=== PATIENT | female | born 1940 | race Two or more races ===

== ENCOUNTER 2017-11-07 20:01 | Observation (INO) | payer OTHER ==
--- NOTE | 2017-11-07 20:31 | PDOC ---
History of Present Illness - History of Present Illness Initial Comments: 11/07/17 20:54 Patient is a 77 F, with PMHx of diabetes, who presents with her daughter for 2 days of hiccough, and decreased PO intake. Her daughter states that 2 weeks ago her mother was seen for a throat infection and was given antibiotics by her doctor for 5 days. Approximately 2 days ago her mom started hiccoughing and coughing. Patient also experienced nausea, vomited once yesterday morning and has been unable to eat for 2 days. She states that she has been able to drink liquids. She was seen at [facility] yesterday and had a workup done. Her x-ray showed that she was constipated. Her daughter gave her mag citrate for the constipation. Her last bowel movement was this morning but passed a very little amount. PCP: Alma Kerr. PAST MEDICAL HISTORY: diabetes PAST SURGICAL HISTORY: no significant history FAMILY HISTORY: no pertinent history SOCIAL HISTORY: lives at home with family MEDICATIONS: reviewed ALLERGIES: As per nursing notes ROS: General: No fevers or chills, no weakness HEENT: No change in vision. No sore throat,. No ear pain Cardiovascular: No chest pain or shortness of breath Respiratory:+cough, +hiccough, no wheezing. Gastrointestinal: +nausea, + vomiting, no diarrhea. +constipation, +decreased PO intake. No rectal bleeding Genitourinary: No dysuria, hematuria, or frequency Musculoskeletal: No joint or muscle pain or swelling Neurologic: No headache, vertigo, dizziness or loss of consciousness Psychiatric: no depression Skin: No rashes or easy bruising Endocrine: no increased thirst or abnormal weight change Allergic: no skin or latex allergy All other systems reviewed and normal Exam: General: Well-nourished well-developed individual, no acute distress HEENT: Throat: Normal, tonsils normal, no erythema or exudate Neck: Supple, no meningeal signs, no lymphadenopathy Eyes::Pupils equal reactive and round, extraocular motion intact Chest: Nontender to palpation Cardiac: S1-S2 normal, regular rate and rhythm, no murmurs rubs or gallops Respiratory: Lungs clear to auscultation bilateral Abdomen: Soft, nondistended, normal bowel sounds, mild tenderness to palpation of lower abdomen. Extremities: Warm, dry, no cyanosis, clubbing, or edema Skin: No rashes Neuro: Alert and oriented x3, nonfocal exam, grossly intact, normal gait Psych: Normal mood and affect Rectal: vault empty, able to palpate small amount of stool high in rectum. Stool is brown with no blood. <Cherie Shah - Last Filed: 11/07/17 21:48> - General History Source: Patient Exam Limitations: No Limitations <Rogelio López I - Last Filed: 11/08/17 00:10> - General Chief Complaint: Nausea Stated Complaint: HICCOUGH Time Seen by Provider: 11/07/17 20:06 Past History <Cherie Shah - Last Filed: 11/07/17 21:48> <Rogelio López I - Last Filed: 11/08/17 00:10> - Past Medical History Allergies/Adverse Reactions: Allergies Allergy/AdvReac Type Severity Reaction Status Date / Time No Known Allergies Allergy Verified 11/07/17 20:24 Home Medications: Ambulatory Orders Cholecalciferol (Vitamin D3) [Vitamin D3] 1,000 unit PO DAILY 11/07/17 Enalapril Maleate 2.5 mg PO DAILY 11/07/17 Metformin HCl [Glucophage] 500 mg PO BID 11/07/17 Simvastatin 10 mg PO DAILY 11/07/17 Sitagliptin Phosphate [Januvia] 25 mg PO DAILY 11/07/17 Review of Systems - Review of Systems Comments:: 11/07/17 21:33 see HPI <Cherie Shah - Last Filed: 11/07/17 21:48> *Physical Exam - Physical Exam Comments: 11/07/17 21:33 see HPI <Cherie Shah - Last Filed: 11/07/17 21:48> ED Treatment Course - LABORATORY CBC & Chemistry Diagram: 11/07/17 21:45 11/07/17 21:45 <Cherie Shah Last Filed: 11/07/17 21:48> - LABORATORY CBC & Chemistry Diagram: 11/07/17 21:45 11/07/17 21:45 <Rogelio López Last Filed: 11/08/17 00:10> *DC/Admit/Observation/Transfer - Attestations Scribe Attestion: 11/07/17 20:57 Documentation prepared by Cherie Shah, acting as medical claims assistant for Rogelio López MD. <Cherie Shah - Last Filed: 11/07/17 21:48> - Discharge Dispostion Admit: Yes <Rogelio López I - Last Filed: 11/08/17 00:10> Diagnosis at time of Disposition: Hyponatremia Constipation Qualifiers: Constipation type: unspecified constipation type Qualified Code(s): K59.00 - Constipation, unspecified - Discharge Dispostion Condition at time of disposition: Good - Referrals Referrals: Alma Kerr MD [Primary Care Provider] - - Patient Instructions - Post Discharge Activity
[2017-11-07 21:00] VITALS: BMI 32.5
[2017-11-07 22:04] LABS: HEMATOCRIT 42.3 % (32.4-45.2); HEMOGLOBIN 14.4 GM/dl (10.7-15.3); MCH 28.7 pg (25.7-33.7); MEAN CELL VOLUME 84.4 fl (80-96); MEAN PLT VOLUME 6.6 fl (7.5-11.1); PLATELET COUNT 392 K/MM3 (134-434); RBC 5.01 M/mm3 (3.60-5.2); RDW 12.3 % (11.6-15.6); WHITE BLOOD COUNT 12.5 K/mm3 (4.0-10.8)
[2017-11-07 22:10] LABS: ALK PHOS 72 U/L (32-92); BILIRUBIN,TOTAL 0.8 mg/dl (0.2-1.0); BLOOD UREA NITROGEN 11 mg/dl (7-18); CALCIUM 9.2 mg/dl (8.4-10.2); CHLORIDE 87 mmol/L (98-107); CO2 29 mmol/L (22-28); CREATININE 0.6 mg/dl (0.6-1.3); GLUCOSE,RANDOM 285 mg/dl (74-106); SGOT/AST 22 U/L (10-42); SGPT/ALT 15 U/L (10-40); TOT PROT 6.7 g/dl (6.4-8.3)
[2017-11-07 22:20] LABS: ANION GAP 6 (8-16)
[2017-11-07 22:24] LABS: SODIUM 122 mmol/L (136-145)
[2017-11-07 22:29] LABS: PH,URINE 5.5 (4.5-8); URINE APPEARANCE Clear; URINE BILIRUBIN 1+ (NEGATIVE); URINE BLOOD Negative (NEGATIVE); URINE GLUCOSE (UA) 2+ (NEGATIVE); URINE KETONE 1+ (NEGATIVE); URINE LEUK ESTERASE Negative (NEGATIVE); URINE NITRITE Negative (NEGATIVE); URINE PROTEIN Trace (NEGATIVE); URINE UROBILINOGEN 0.2 (0.2-1.0)
[2017-11-07 22:31] LABS: URINE COLOR YELLOW
[2017-11-07 22:41] LABS: PLATELET ESTIMATE ADEQUATE
[2017-11-07] MEDS ORDERED: SODIUM CHLORIDE 1,000 ML IV ONE (22:45)
[2017-11-07 22:50] LABS: LIPASE 145 U/L (73-393)
[2017-11-08] MEDS ORDERED: SODIUM CHLORIDE 1,000 ML IV SCH ×2 (00:30→17:36)
[2017-11-08] MEDS: INSULIN SLIDING SCALE (NOVOLOG) 1 VIAL SQ SCH ×2 (01:53→06:06)
[2017-11-08] MEDS ORDERED: INSULIN (NOVOLOG) ASPART 100 UNITS/ML 10ML VIAL ONE ×2 (01:57→06:09)
[2017-11-08] MEDS ORDERED: HEPARIN NA (PORCINE) 5,000 UNITS/ML 1ML VIAL ONE ×2 (05:29→14:02)
[2017-11-08] MEDS ORDERED: HEMOQUE TEST 1 EACH EACH ONE ×3 (05:52→16:39)
[2017-11-08] MEDS: HEPARIN NA (PORCINE) 5,000 UNITS/ML 1ML VIAL SQ SCH ×3 (06:00→21:49)
[2017-11-08 07:32] LABS: BASO % 0.2 % (0-2.0); EOS % 0.4 % (0-4.5); HEMATOCRIT 37.2 % (32.4-45.2); HEMOGLOBIN 13.1 GM/dl (10.7-15.3); LYMPH % 10.5 % (8-40); MCHC 35.3 g/dl (32.0-36.0); MEAN CELL VOLUME 85.1 fl (80-96); MEAN PLT VOLUME 6.6 fl (7.5-11.1); MONO % 7.5 % (3.8-10.2); NEUT % 81.4 % (42.8-82.8); PLATELET COUNT 344 K/MM3 (134-434); RBC 4.37 M/mm3 (3.60-5.2); RDW 12.3 % (11.6-15.6); WHITE BLOOD COUNT 10.4 K/mm3 (4.0-10.8)
[2017-11-08 07:51] LABS: ANION GAP 0 (8-16); BLOOD UREA NITROGEN 9 mg/dl (7-18); CALCIUM 8.7 mg/dl (8.4-10.2); CHLORIDE 94 mmol/L (98-107); CO2 29 mmol/L (22-28); GLUCOSE,RANDOM 183 mg/dl (74-106); PHOSPHOROUS 1.9 mg/dl (2.5-4.6); POTASSIUM 3.6 mmol/L (3.5-5.1)
[2017-11-08 08:01] LABS: CREATININE < 0.8 mg/dl (0.6-1.3)
[2017-11-08 08:03] LABS: SODIUM 123 mmol/L (136-145)
--- NOTE | 2017-11-08 08:51 | HP ---
Admitting History and Physical - Primary Care Physician PCP: Winston Villalobos - Admission History of Present Illness: Patient is a 77 F, with PMHx of diabetes, who presents with her daughter for 2 days of hiccough, and decreased PO intake. Her daughter states that 2 weeks ago her mother was seen for a throat infection and was given antibiotics by her doctor for 5 days. Approximately 2 days ago her mom started hiccoughing and coughing. Patient also experienced nausea, vomited once yesterday morning and has been unable to eat for 2 days. She states that she has been able to drink liquids. She was seen at [facility] yesterday and had a workup done. Her x-ray showed that she was constipated. Her daughter gave her mag citrate for the constipation. pt found to be hyponatremic- given fluids cxr - -ve ct abd- pending report pt seen today in er. chart reviewed awake/ no distress but weak History Source: Medical Record Limitations to Obtaining History: Clinical Condition - Past Medical History Cardiovascular: Yes: HTN Endocrine: Yes: Diabetes Mellitus - Smoking History Smoking history: Former smoker Have you smoked in the past 12 months: No If you are a former smoker, when did you quit?: 1975 - Alcohol/Substance Use Hx Alcohol Use: No Home Medications - Allergies Allergies/Adverse Reactions: Allergies Allergy/AdvReac Type Severity Reaction Status Date / Time No Known Allergies Allergy Verified 11/07/17 20:24 - Home Medications Home Medications: Ambulatory Orders Cholecalciferol (Vitamin D3) [Vitamin D3] 1,000 unit PO DAILY 11/07/17 Enalapril Maleate 2.5 mg PO DAILY 11/07/17 Metformin HCl [Glucophage] 500 mg PO BID 11/07/17 Simvastatin 10 mg PO DAILY 11/07/17 Sitagliptin Phosphate [Januvia] 25 mg PO DAILY 11/07/17 Review of Systems - Review of Systems Constitutional: reports: Loss of Appetite, Weakness Eyes: reports: No Symptoms Neck: reports: No Symptoms Cardiovascular: reports: No Symptoms Respiratory: reports: No Symptoms Gastrointestinal: reports: Constipation Genitourinary: reports: No Symptoms Neurological: reports: No Symptoms Psychiatric: reports: No Symptoms Physical Examination Vital Signs: Vital Signs Temperature 97.8 F 11/08/17 04:00 Pulse Rate 86 11/08/17 06:14 Respiratory Rate 18 11/08/17 06:14 Blood Pressure 127/75 11/08/17 06:14 O2 Sat by Pulse Oximetry (%) 100 11/08/17 06:14 Constitutional: Yes: No Distress Eyes: Yes: Conjunctiva Clear HENT: Yes: WNL Neck: Yes: Supple Cardiovascular: Yes: Regular Rate and Rhythm Respiratory: Yes: CTA Bilaterally Gastrointestinal: Yes: Soft Edema: No Neurological: Yes: Alert Labs: CBC, BMP 11/08/17 06:00 11/08/17 06:00 Imaging - Results Chest X-ray: Report Reviewed Cat Scan: Pending EKG: Report Reviewed Problem List - Problems (1) HTN (hypertension) Code(s): I10 - ESSENTIAL (PRIMARY) HYPERTENSION (2) Diabetes Code(s): E11.9 - TYPE 2 DIABETES MELLITUS WITHOUT COMPLICATIONS (3) Hyponatremia Code(s): E87.1 - HYPO-OSMOLALITY AND HYPONATREMIA Assessment/Plan Observe today fluids increase rate-- 100 cc/ hr hold po diabetic meds renal consult already called by er f/u rio monitor bgm. dvt prophylaxis will follow discussed with nursing staff.
[2017-11-08] MEDS ORDERED: ACETAMINOPHEN 500 MG TABLET (FP) PO PRN (08:56)
[2017-11-08] MEDS: SODIUM CHLORIDE 1,000 ML IV SCH ×2 (08:58→09:00)
[2017-11-08] MEDS: CHOLECALCIFEROL (VITAMIN D3) 1,000 UNIT TABLET (FP) PO SCH (10:28)
[2017-11-08] MEDS: ENALAPRIL MALEATE 2.5 MG TABLET (FP) PO SCH (10:28)
--- NOTE | 2017-11-08 11:28 | CONSULT ---
Consult Consult Specialty:: Nephrology Reason for Consultation:: hyponatremia - History of Present Illness Chief Complaint: cough and decreased PO inake History of Present Illness: Pt is a 77 year old female with pmhx of DM who presents to the ER with decreased PO intake and cough. She was treated with abx for an URI as outpt. She was found to be hyponatremic and I was called to evalaute her. She says she has had poor appetite. She has not had much of any solid food and has only been taking in liquids and water. She says she feels a little better today. She denies history of hyponatremia. She does feel week. She denies change in vision. Pt also complains of constipation. - History Source History Provided By: Patient, Medical Record - Past Medical History Cardio/Vascular: Yes: HTN, Hyperlipdemia Endocrine: Yes: Diabetes Mellitus - Alcohol/Substance Use Hx Alcohol Use: No - Smoking History Smoking history: Former smoker Have you smoked in the past 12 months: No If you are a former smoker, when did you quit?: 1975 Home Medications - Allergies Allergies/Adverse Reactions: Allergies Allergy/AdvReac Type Severity Reaction Status Date / Time No Known Allergies Allergy Verified 11/07/17 20:24 - Home Medications Home Medications: Ambulatory Orders Cholecalciferol (Vitamin D3) [Vitamin D3] 1,000 unit PO DAILY 11/07/17 Enalapril Maleate 2.5 mg PO DAILY 11/07/17 Metformin HCl [Glucophage] 500 mg PO BID 11/07/17 Simvastatin 10 mg PO DAILY 11/07/17 Sitagliptin Phosphate [Januvia] 25 mg PO DAILY 11/07/17 Family Disease History - Family Disease History Family History: Denies Review of Systems - Review of Systems Constitutional: reports: Malaise. denies: Chills, Fever HENT: reports: No Symptoms Neck: reports: No Symptoms Cardiovascular: denies: Edema Respiratory: reports: Cough Gastrointestinal: reports: Constipation, Nausea Genitourinary: reports: No Symptoms Musculoskeletal: reports: No Symptoms Integumentary: reports: No Symptoms Neurological: reports: No Symptoms Endocrine: reports: No Symptoms Hematology/Lymphatic: reports: No Symptoms Psychiatric: reports: No Symptoms Physical Exam Vital Signs: Vital Signs Temperature 97.8 F 11/08/17 04:00 Pulse Rate 87 11/08/17 10:02 Respiratory Rate 18 11/08/17 10:02 Blood Pressure 127/67 11/08/17 10:02 O2 Sat by Pulse Oximetry (%) 99 11/08/17 10:02 Constitutional: Yes: Calm Eyes: Yes: Conjunctiva Clear HENT: Yes: Atraumatic Neck: Yes: Supple Cardiovascular: Yes: S1, S2 Respiratory: Yes: CTA Bilaterally Gastrointestinal: Yes: Soft Renal/: Yes: WNL Musculoskeletal: Yes: WNL Extremities: Yes: WNL Neurological: Yes: Oriented Psychiatric: Yes: Oriented Labs: CBC, BMP 11/08/17 06:00 11/08/17 06:00 Laboratory Tests 11/07/17 11/07/17 11/08/17 21:45 21:45 02:40 WBC 12.5 H Sodium 122 L* 127 L 11/08/17 11/08/17 11/08/17 06:00 06:00 11:41 WBC 10.4 Sodium 123 L* 129 L 11/08/17 15:45 WBC Sodium 126 L Imaging - Results Chest X-ray: Report Reviewed Cat Scan: Report Reviewed Problem List - Problems (1) Constipation Code(s): K59.00 - CONSTIPATION, UNSPECIFIED Qualifiers: Constipation type: unspecified constipation type Qualified Code(s): K59.00 - Constipation, unspecified (2) Diabetes Code(s): E11.9 - TYPE 2 DIABETES MELLITUS WITHOUT COMPLICATIONS (3) HTN (hypertension) Code(s): I10 - ESSENTIAL (PRIMARY) HYPERTENSION (4) Hyponatremia Code(s): E87.1 - HYPO-OSMOLALITY AND HYPONATREMIA Assessment/Plan Current Medications Generic Name Dose Route Start Last Admin Trade Name Shasha PRN Reason Stop Dose Admin Acetaminophen 500 mg 11/08/17 08:56 Tylenol - PO Q6H PRN BACK PAIN Atorvastatin Calcium 10 mg 11/08/17 22:00 Lipitor - PO HS YIMI Cholecalciferol 1,000 unit 11/08/17 10:00 11/08/17 10:28 Vitamin D3 - PO 1,000 unit DAILY YIMI Administration Enalapril Maleate 2.5 mg 11/08/17 10:00 11/08/17 10:28 Vasotec - PO 2.5 mg DAILY YIMI Administration Heparin Sodium (Porcine) 5,000 unit 11/08/17 06:00 11/08/17 06:00 Heparin - SQ 5,000 unit TID YIMI Administration Sodium Chloride 1,000 mls @ 100 mls/hr 11/08/17 08:45 11/08/17 08:58 Normal Saline - IV 100 mls/hr ASDIR YIMI Administration Insulin Aspart 0 units 11/08/17 16:30 Novolog Vial SQ BIDAC YIMI Protocol Laboratory Tests 11/08/17 11/08/17 11/08/17 06:00 06:50 08:15 Serum Osmolality Pending TSH Cortisol AM Sample Urine Osmolality Pending Ur Random Sodium 25 11/08/17 11/08/17 11:41 11:41 Serum Osmolality TSH 0.57 Cortisol AM Sample Pending Urine Osmolality Ur Random Sodium Impression 1. hyponatremia 2. DM 3. HTN 4. constipation 5. HLD Plan - decrease rate of fluids - pt was on 1/2 ns overnight instead of ns - workup in progress - sodium improving with saline - repeat labs in am - urine sodium is low, cont with fluids Dr Jernigan
[2017-11-08 13:02] LABS: ANION GAP 7 (8-16); BLOOD UREA NITROGEN 8 mg/dL (7-18); CALCIUM 8.9 mg/dL (8.5-10.1); CHLORIDE 93 mmol/L (98-107); CO2 29 mmol/L (21-32); CREATININE 0.5 mg/dL (0.55-1.02); GLUCOSE,RANDOM 272 mg/dL (74-106); POTASSIUM 3.8 mmol/L (3.5-5.1); SODIUM 129 mmol/L (136-145)
[2017-11-08 16:32] LABS: ANION GAP 10 (8-16); BLOOD UREA NITROGEN 8 mg/dl (7-18); CALCIUM 9.1 mg/dl (8.4-10.2); CHLORIDE 91 mmol/L (98-107); CO2 25 mmol/L (22-28); GLUCOSE,RANDOM 290 mg/dl (74-106); SODIUM 126 mmol/L (136-145)
[2017-11-08 16:40] LABS: CREATININE < 0.8 mg/dl (0.6-1.3)
[2017-11-08] MEDS: INSULIN (NOVOLOG) ASPART 100 UNITS/ML 10ML VIAL SQ SCH (17:15)
[2017-11-08] MEDS ORDERED: ATORVASTATIN CA 10 MG TABLET (FP) PO SCH (22:00)
[2017-11-09] MEDS: HEPARIN NA (PORCINE) 5,000 UNITS/ML 1ML VIAL SQ SCH (05:31)
[2017-11-09] MEDS ORDERED: INSULIN (NOVOLOG) ASPART 100 UNITS/ML 10ML VIAL ONE (06:17)
[2017-11-09] MEDS: INSULIN (NOVOLOG) ASPART 100 UNITS/ML 10ML VIAL SQ SCH (06:18)
[2017-11-09 07:01] VITALS: BP 128/66; PULSE 89; TEMP 98.6
[2017-11-09 08:26] LABS: ANION GAP 4 (8-16); BLOOD UREA NITROGEN 6 mg/dl (7-18); CALCIUM 9.2 mg/dl (8.4-10.2); CHLORIDE 103 mmol/L (98-107); CO2 27 mmol/L (22-28); GLUCOSE,RANDOM 236 mg/dl (74-106); POTASSIUM 3.5 mmol/L (3.5-5.1); SODIUM 134 mmol/L (136-145)
[2017-11-09 09:14] LABS: CREATININE < 0.8 mg/dl (0.6-1.3)
[2017-11-09] MEDS: CHOLECALCIFEROL (VITAMIN D3) 1,000 UNIT TABLET (FP) PO SCH (09:20)
[2017-11-09] MEDS: ENALAPRIL MALEATE 2.5 MG TABLET (FP) PO SCH (09:20)
--- NOTE | 2017-11-09 12:53 | DS ---
Physical Examination Vital Signs: Vital Signs Temperature 98.6 F 11/09/17 06:00 Pulse Rate 89 11/09/17 06:00 Respiratory Rate 20 11/09/17 06:00 Blood Pressure 128/66 11/09/17 06:00 O2 Sat by Pulse Oximetry (%) 97 11/09/17 06:00 Findings/Remarks: much better Constitutional: Yes: No Distress Neck: Yes: Supple Cardiovascular: Yes: Regular Rate and Rhythm Respiratory: Yes: CTA Bilaterally Gastrointestinal: Yes: Soft Edema: No Labs: CBC, BMP 11/08/17 06:00 11/09/17 07:45 Discharge Summary Reason For Visit: HYPONATREMIA, CONSTIPATION Current Active Problems Constipation (Acute) Diabetes (Acute) HTN (hypertension) (Acute) Hyponatremia (Acute) Hospital Course: Observation for hyponatremia. given fluids renal followed much better. d/c today meds reconcilled f/u in office Condition: Good - Instructions Referrals: Alma Kerr MD [Staff Physician] - Disposition: HOME - Home Medications Comprehensive Discharge Medication List: Ambulatory Orders Cholecalciferol (Vitamin D3) [Vitamin D3] 1,000 unit PO DAILY 11/07/17 Enalapril Maleate 2.5 mg PO DAILY 11/07/17 Metformin HCl [Glucophage] 500 mg PO BID 11/07/17 Simvastatin 10 mg PO DAILY 11/07/17 Sitagliptin Phosphate [Januvia] 25 mg PO DAILY 11/07/17
--- NOTE | 2017-11-09 15:57 | EKG ---
Test Reason : Blood Pressure : / mmHG Vent. Rate : 086 BPM Atrial Rate : 088 BPM P-R Int : 156 ms QRS Dur : 076 ms QT Int : 366 ms P-R-T Axes : 055 014 040 degrees QTc Int : 437 ms NORMAL SINUS RHYTHM NORMAL ECG NO PREVIOUS ECGS AVAILABLE Confirmed by MIGUEL BOOKER MD ([id number]) on 11/09/2017 3:56:49 PM Referred By: DR KING Confirmed By:MIGUEL BOOKER MD
== END 2017-11-09 14:23 | disposition home or self-care (01) ==
LOC: FER 20:01 → FM/S 11-08 14:41 → INTOOBSV 11-08 14:41 → FM/S 11-09 06:12
PROVIDERS: ADMIT Internal Medicine; ATTEND Internal Medicine
PROC: 3E0337Z Introduction of Electrolytic and Water Balance Substance into Peripheral Vein, Percutaneous Approach (ICD-10-PCS; principal; 2017-11-08)
PROC: 3E013VG Introduction of Insulin into Subcutaneous Tissue, Percutaneous Approach (ICD-10-PCS; 2017-11-08)
PROC: 3E013GC Introduction of Other Therapeutic Substance into Subcutaneous Tissue, Percutaneous Approach (ICD-10-PCS; 2017-11-08)
DX: E87.1 Hypo-osmolality and hyponatremia (principal); K59.00 Constipation, unspecified; I10 Essential (primary) hypertension; E11.9 Type 2 diabetes mellitus without complications
CPT/HCPCS: 36415; 71046-TC-FY; 74019-TC-FY; 74177-TC; 80048; 80053; 81003; 82436; 82533; 82550; 82962; 83690; 83735; 83930; 83935; 84100; 84133; 84295; 84300; 84443; 84484; 85025; 93005; 99285-25; G0378; J1644; J7030

== ENCOUNTER 2019-04-24 15:40 | Emergency (ER) | payer OTHER ==
[2019-04-24 15:51] VITALS: BP 112/75; PULSE 96; TEMP 98.3; BMI 28.0
--- NOTE | 2019-04-24 15:52 | PDOC ---
History of Present Illness - General Chief Complaint: Injury Stated Complaint: FALL, HEAD INJURY, RT WRIST PAIN Time Seen by Provider: 04/24/19 15:44 - History of Present Illness Initial Comments: 04/25/19 08:37 Chief complaint: tripped and fell, injuries to forehead and right wrist. History of present illness: Patient tripped and fell immediately [employer], injuring her right forehead and right wrist. Complains of pain at both sites. Review of systems: Denies LOC. Denies injury or pain to the neck. Denies chest pain, shortness of breath, abdominal pain, nausea, vomiting, diarrhea, diaphoresis, visual or focal neurologic symptoms, unsteadiness of gait. Remainder systems reviewed and negative Past medical history: High blood pressure, [id number] diabetes, with sugars under good control on oral medication Social history: No tobacco alcohol or drugs. Fully active and without disability Family history: Reviewed and significant for diabetes, but no early coronary artery disease, other metabolic diseases, or cancer Physical exam: Alert oriented 3 well-developed well-nourished no acute distress cheerful and cooperative Afebrile, vital signs normal Head is atraumatic except for a 3 cm contusion of the right forehead, with ecchymoses and hematoma. There is no crepitus or depression. There is no significant laceration or abrasion. PERRLA 4 mm, fundi benign with sharp disc margins and good central venous pulsations. Visual steward intact to confrontation. EOMs full without diplopia ENT clear Neck without tenderness or deformity, full range of motion without pain Chest clear, full breath sounds bilaterally, no rib cage or chest wall deformity or tenderness Abdomen soft nontender without mass or organomegaly. No CVAT Pelvis and spine without point tenderness or deformity Shoulders and hips with full range of motion, no pain or restriction in movement Extremities without visible or palpable trauma except for the right wrist, where there is swelling and tenderness over the distal radius. No sign of injury to the hand or fingers. Pulses full. No distal sensory or motor deficits. Forearm, elbow, and upper arm show no evidence of trauma Impression: Closed head injury, right wrist injury, probable fracture. Clinically and neurologically stable Plan: Head CT is negative. X-ray of the right wrist reveals impacted fracture of the distal radius, without angulation or other significant deformity. Recommended ice to the forehead and observation by her family. Volar splint applied to the right wrist, patient much more comfortable after splint application, good finger movement, capillary refill, and no distal numbness tingling or pain in the fingers after application. Referred to orthopedist for follow-up of the fracture, possible closed reduction. Patient fully ambulatory and in no significant pain at discharge with family to follow up as directed. Past History - Past Medical History Allergies/Adverse Reactions: Allergies Allergy/AdvReac Type Severity Reaction Status Date / Time No Known Allergies Allergy Verified 04/24/19 15:44 Home Medications: Ambulatory Orders Cholecalciferol (Vitamin D3) [Vitamin D3] 1,000 unit PO DAILY 11/07/17 Enalapril Maleate 2.5 mg PO DAILY 11/07/17 Metformin HCl [Glucophage] 500 mg PO BID 11/07/17 Simvastatin 10 mg PO DAILY 11/07/17 Sitagliptin Phosphate [Januvia] 25 mg PO DAILY 11/07/17 COPD: No Diabetes: Yes (TYPE II) HTN: Yes Hypercholesterolemia: Yes - Psycho Social/Smoking Cessation Hx Smoking History: Never smoked Have you smoked in the past 12 months: No If you are a former smoker, when did you quit?: 1975 Information on smoking cessation initiated: No Hx Alcohol Use: No Drug/Substance Use Hx: No Substance Use Type: None Hx Substance Use Treatment: No *Physical Exam - Vital Signs Last Vital Signs Temp Pulse Resp BP Pulse Ox 98.3 F 96 H 18 112/75 96 04/24/19 15:40 04/24/19 15:40 04/24/19 15:40 04/24/19 15:40 04/24/19 15:40 Medical Decision Making - Medical Decision Making 04/25/19 08:[address] negative as described above Wrist x-ray with impacted fracture of the distal radius Procedure note: Application of volar splint A volar splint was applied in position of function. Patient more comfortable thereafter. As noted, physical exam after splint application showed no distal deficits. Referred to orthopedics for definitive care. Discharge - Discharge Information Problems reviewed: Yes Clinical Impression/Diagnosis: Head injury Qualifiers: Encounter type: initial encounter Qualified Code(s): S09.90XA - Unspecified injury of head, initial encounter Fracture of wrist Qualifiers: Encounter type: initial encounter Fracture type: closed Laterality: right Qualified Code(s): S62.101A - Fracture of unspecified carpal bone, right wrist, initial encounter for closed fracture Condition: Improved Disposition: HOME - Admission No - Follow up/Referral Referrals: Corey Love MD [Staff Physician] - 3 days - Patient Discharge Instructions Patient Printed Discharge Instructions: DI for Wrist Fracture, DI for Closed Head Injury, How to Take Care of Your Splint Additional Instructions: Ice to forehead, Tylenol as needed Splint and sling for wrist fracture Return to ER if any serious symptoms develop Otherwise follow-up with mirror specialist for treatment of the fractured wrist. Print Language: PALESTINIAN - Post Discharge Activity
[2019-04-24] MEDS ORDERED: ACETAMINOPHEN 325 MG TABLET (FP) PO ONE (17:58)
[2019-04-24] MEDS ORDERED: ACETAMINOPHEN 325 MG TABLET (FP) ONE (18:05)
== END 2019-04-24 18:35 | disposition home or self-care (01) ==
LOC: FER 15:40
PROC: 2W3CX1Z Immobilization of Right Lower Arm using Splint (ICD-10-PCS; principal; 2019-04-24)
DX: S62.101A Fracture of unspecified carpal bone, right wrist, initial encounter for closed fracture (principal); W01.0XXA Fall on same level from slipping, tripping and stumbling without subsequent striking against object, initial encounter; Y93.89 Activity, other specified; Y92.89 Other specified places as the place of occurrence of the external cause; I10 Essential (primary) hypertension; E78.00 Pure hypercholesterolemia, unspecified; E11.9 Type 2 diabetes mellitus without complications; Z87.891 Personal history of nicotine dependence
CPT/HCPCS: 70450-TC; 73110-TC-RT-FY; 99283-25

== ENCOUNTER 2021-01-21 08:43 | Emergency (ER) | payer OTHER ==
[2021-01-21 09:08] VITALS: TEMP 96.3; BMI 30.1
[2021-01-21 10:21] LABS: BASO % 0.5 % (0-2.0); EOS % 0.5 % (0-4.5); HEMATOCRIT 39.5 % (32.4-45.2); HEMOGLOBIN 13.4 GM/dL (10.7-15.3); LYMPH % 14.8 % (8-40); MCH 29.7 pg (25.7-33.7); MCHC 34.1 g/dl (32.0-36.0); MEAN CELL VOLUME 87.2 fl (80-96); MONO % 10.8 % (3.8-10.2); NEUT % 73.4 % (42.8-82.8); PLATELET COUNT 208 10^3/uL (134-434); RBC 4.53 M/mm3 (3.60-5.2); RDW 13.6 % (11.6-15.6); WHITE BLOOD COUNT 10.1 K/mm3 (4.0-10.0)
[2021-01-21 10:47] LABS: CHLORIDE 105 mmol/L (98-107); SODIUM 141 mmol/L (136-145)
[2021-01-21 10:49] LABS: ALBUMIN 3.6 g/dl (3.4-5.0); ANION GAP 10 MMOL/L (8-16); BLOOD UREA NITROGEN 29.7 mg/dL (7-18); CALCIUM 9.8 mg/dL (8.5-10.1); CO2 26 mmol/L (21-32); GLUCOSE,RANDOM 65 mg/dL (74-106)
[2021-01-21 10:52] LABS: CREATININE 0.7 mg/dL (0.55-1.3); SGOT/AST 34 U/L (15-37)
[2021-01-21 10:55] LABS: BILIRUBIN,TOTAL 0.9 mg/dL (0.2-1); TOT PROT 6.4 g/dl (6.4-8.2)
[2021-01-21 10:56] LABS: ALK PHOS 85 U/L (45-117)
[2021-01-21 12:00] VITALS: BP 125/70; PULSE 84
[2021-01-21 12:53] LABS: SGPT/ALT 22 U/L (13-61)
[2021-01-21 13:10] LABS: PH,URINE 6.5 (5.0-8.0); URINE APPEARANCE CLEAR; URINE BILIRUBIN NEGATIVE (NEGATIVE); URINE COLOR YELLOW; URINE GLUCOSE (UA) NEGATIVE (NEGATIVE); URINE KETONE NEGATIVE (NEGATIVE); URINE LEUK ESTERASE NEGATIVE (NEGATIVE); URINE NITRITE NEGATIVE (NEGATIVE); URINE PROTEIN NEGATIVE (NEGATIVE); URINE UROBILINOGEN 0.2 mg/dL (0.2-1.0)
== END 2021-01-21 14:10 | disposition home or self-care (01) ==
LOC: JER 08:43
DX: E11.9 Type 2 diabetes mellitus without complications (principal)
CPT/HCPCS: 36415; 70450-TC; 71045-TC-FY; 80053; 81003; 82962; 84484; 85025; 87086; 93005; 93010; 99285-25